=== PATIENT | female | born 1955 | race Caucasian/White ===

== ENCOUNTER 2016-09-24 15:49 | Emergency (ER) | payer BC ==
[2016-09-24 17:29] VITALS: BP 147/85
--- NOTE | 2016-09-24 18:04 | UC ---
Throat Pain/Nasal Ruperto HPI - HPI Summary HPI Summary: FOUR WEEKS OF SINUS CONGESTION PRESSURE, RIGHT EAR PLUGGED. WITH EAR PRESSURE HAS HAD OCCASIONAL VERTIGO. NOT HAVING VERTIGO CURRENTLY. - History of Current Complaint Chief Complaint: UCGeneralIllness Stated Complaint: SINUS CONGESTION Time Seen by Provider: 09/24/16 17:23 Hx Obtained From: Patient Onset/Duration: Gradual Onset, Lasting Weeks, Still Present Severity: Moderate Cough: Nonproductive Associated Signs & Symptoms: Positive: Sinus Discomfort, Nasal Discharge - Epiglottits Risk Factors Epiglottis Risk Factors: Negative - Allergies/Home Medications Allergies/Adverse Reactions: Allergies Allergy/AdvReac Type Severity Reaction Status Date / Time bandaids Allergy Mild Itching Uncoded 09/24/16 17:25 PMH/Surg Hx/FS Hx/Imm Hx Previously Healthy: Yes Endocrine History Of: Denies: Diabetes Cardiovascular History Of: Denies: Hypertension, Pacemaker/ICD Respiratory History Of: Denies: Asthma GI/ History Of: Denies: Renal Disease Cancer History Of: Denies: Breast Cancer - Surgical History Surgical History: Yes Surgery Procedure, Year, and Place: 1997 HYSTERECTOMY [place];. 2009 RIGHT LITTLE FINGER FRACTURED, ORIF AND REMOVAL OF PINS [facility] [place]; - Family History Known Family History: Positive: None, Unknown - Social History Occupation: Employed Full-time Lives: With Family Alcohol Use: Occasionally Substance Use Type: None Smoking Status (MU): Never Smoked Tobacco Have You Smoked in the Last Year: No Review of Systems Constitutional: Negative Skin: Negative Eyes: Negative ENT: Ear Ache, Nasal Discharge Respiratory: Cough Cardiovascular: Negative Gastrointestinal: Negative Genitourinary: Negative Motor: Negative Neurovascular: Negative Musculoskeletal: Negative Neurological: Negative Psychological: Negative All Other Systems Reviewed And Are Negative: Yes Physical Exam Triage Information Reviewed: Yes Appearance: Well-Appearing, No Pain Distress, Well-Nourished Vital Signs: Initial Vital Signs Temp 98 F 09/24/16 17:26 Pulse 82 09/24/16 17:26 Resp 18 09/24/16 17:26 BP 147/85 09/24/16 17:26 Pulse Ox 99 09/24/16 17:26 Vital Signs Reviewed: Yes Eye Exam: Normal Eyes: Positive: Conjunctiva Clear ENT: Positive: Hearing grossly normal, Pharynx normal, TM bulging - R>L, TM dull Dental Exam: Normal Neck exam: Normal Neck: Positive: Supple, Nontender Respiratory Exam: Normal Respiratory: Positive: Chest non-tender, Lungs clear, Normal breath sounds, No respiratory distress, No accessory muscle use Cardiovascular Exam: Normal Cardiovascular: Positive: RRR, No Murmur, Pulses Normal Abdominal Exam: Normal Abdomen Description: Positive: Nontender, No Organomegaly Bowel Sounds: Positive: Present Musculoskeletal Exam: Normal Musculoskeletal: Positive: Strength Intact Neurological Exam: Normal Psychological Exam: Normal Psychological: Positive: Normal Response To Family Skin Exam: Normal Throat Pain/Nasal Course/Dx - Differential Dx/Diagnosis Differential Diagnosis/HQI/PQRI: Pharyngitis, Sinusitis, Tonsillitis, URI Provider Diagnoses: SINUSITIS. RIGHT OTITIS SEROUS. VERTIGO Discharge - Discharge Plan Condition: Stable Disposition: HOME Prescriptions: Amoxicillin/Clavulanate TAB* [Augmentin TAB 875*] 875 mg PO BID #20 tab Fluticasone NASAL SPRAY 50MCG* [Flonase NASAL SPRAY 50MCG*] 2 spray BOTH NARES DAILY #1 btl Meclizine TAB* [Antivert 12.5 TAB*] 25 mg PO TID PRN #15 tab PRN Reason: Vertigo Patient Education Materials: Sinusitis (ED), Vertigo (ED), Serous Otitis Media (ED) Referrals: Stalin Lagunas NP [Primary Care Provider] -
== END 2016-09-24 18:05 | disposition home or self-care (01) ==
LOC: UCEAST 15:49
DX: J32.9 Chronic sinusitis, unspecified (principal); H65.91 Unspecified nonsuppurative otitis media, right ear; R42 Dizziness and giddiness
CPT/HCPCS: 99212; G0463

== ENCOUNTER 2017-11-28 11:19 | Emergency (ER) | payer BC ==
[2017-11-28 11:27] VITALS: BP 130/80
--- NOTE | 2017-11-28 11:51 | UC ---
Abdominal Pain Female HPI - HPI Summary HPI Summary: Pt presents with diarrhea since this morning. She tells me that she has a history of ulcerative colitis and takes medication when she gets "flares". Her last colonoscopy was [address] Pineda. This morning she woke up around 0400 with lower abdominal cramping and diarrhea. Has had 6 episodes of very loose diarrhea since that time. About a half hour ago she vomited. Has been drinking fluids, but has not eaten anything today. Denies fever, chills, SOB, chest pain. - History of Current Complaint Chief Complaint: UCGI Stated Complaint: DIARRHEA Time Seen by Provider: 11/28/17 11:50 Hx Obtained From: Patient Onset/Duration: Sudden Onset Severity Initially: Moderate Severity Currently: Moderate Pain Intensity: 7 Pain Scale Used: 0-10 Numeric Location: Diffuse Allergies/Adverse Reactions: Allergies Allergy/AdvReac Type Severity Reaction Status Date / Time bandaids Allergy Unknown Itching Uncoded 11/28/17 11:27 Home Medications: Home Medications Hyoscyamine Sulfate 0.125 mg PO DAILY PRN 11/28/17 [History Confirmed 11/28/17] PMH/Surg Hx/FS Hx/Imm Hx - Additional Past Medical History Additional PMH: Colitis Previously Healthy: Yes - Surgical History Surgical History: Yes Surgery Procedure, Year, and Place: 1997 HYSTERECTOMY [place];. 2009 RIGHT LITTLE FINGER FRACTURED, ORIF AND REMOVAL OF PINS [facility]; - Family History Known Family History: Positive: None, Unknown - Social History Occupation: Employed Full-time Lives: With Family Alcohol Use: Weekly Substance Use Type: None Smoking Status (MU): Never Smoked Tobacco Have You Smoked in the Last Year: No Review of Systems Constitutional: Negative Skin: Negative Respiratory: Negative Cardiovascular: Negative Gastrointestinal: Abdominal Pain, Vomiting, Diarrhea, Nausea Neurovascular: Negative Musculoskeletal: Negative Neurological: Negative Psychological: Negative All Other Systems Reviewed And Are Negative: Yes Physical Exam - Summary Physical Exam Summary: GENERAL: NAD. WDWN. No pain distress. SKIN: No rashes, sores, ulcers, masses, lesions. NECK: Supple. Nontender. No lymphadenopathy. CHEST: CTAB. No r/r/w. No accessory muscle use. Breathing comfortably and in no distress. CV: RRR. Without m/r/g. Pulses intact. Brisk cap refill. ABDOMEN: Mild TTP generalized with no localized tenderness. Soft. No distention or guarding. No organomegaly. No CVA tenderness. Bowel sounds present x4. NEURO: Alert. CN II-XII grossly intact. PSYCH: Age appropriate behavior. Triage Information Reviewed: Yes Vital Signs: Initial Vital Signs Temp 98.4 F 11/28/17 11:23 Pulse 83 11/28/17 11:23 Resp 14 11/28/17 11:23 BP 130/80 11/28/17 11:23 Pulse Ox 100 11/28/17 11:23 Abd Pain Female Course/Dx - Course Course Of Treatment: I spoke with Dr. Branham and he was able to see the patient 's outpatient records from his GI office - last colonscopy showed pt does NOT have UC and had been diagnosed with IBS. Given this information, this is likely viral gastroenteritis. She was given zofran in the clinic with mild relief of her nausea. D/c with stool sample kit and zofran. Go to ED if symptoms worsen. - Differential Dx/Diagnosis Provider Diagnoses: Viral gastroenteritis Discharge - Sign-Out/Discharge Documenting (check all that apply): Discharge - Discharge Plan Condition: Stable Disposition: HOME Prescriptions: Ondansetron ODT TAB* [Zofran 4 MG Odt TAB*] 4 mg PO Q8H PRN #12 tab.odt PRN Reason: Nausea Patient Education Materials: Gastroenteritis (ED) Referrals: Stalin Lagunas NP [Primary Care Provider] - Additional Instructions: If you develop a fever, shortness of breath, chest pain, new or worsening symptoms - please call your PCP or go to the ED. 1) Drink plenty of clear fluids 2) Try BRAT diet - bananas, rice, applesauce, and toast. Advance diet as tolerated - Billing Disposition and Condition Condition: STABLE Disposition: HOME
[2017-11-28] MEDS ORDERED: Ondansetron ODT TAB* 4 MG PO ONE (12:06)
== END 2017-11-28 12:58 | disposition home or self-care (01) ==
LOC: UCEAST 11:19
DX: A08.4 Viral intestinal infection, unspecified (principal); Z91.048 Other nonmedicinal substance allergy status
CPT/HCPCS: 99212; A9270-GY; G0463

== ENCOUNTER 2017-12-09 11:45 | Emergency (ER) | payer BC ==
--- OUTSIDE RECORDS SUMMARY | 2017-12-09 11:55 | XMS REPORT ---
:1955 External Reference #:[id number] Author Organization [facility] Address [address] [address] Phone [phone] Care Team Providers Name Role Phone Stalin Lagunas N.P. Care Team Information Promotional Advertising Assistant Unavailable Payers Type Date Identification Payment Subscriber Numbers Provider Health Maintenance Effective: Policy Number: BCBS [facility] Bernadette Reece [employer] ([facility]) 08/29/2015 [id number] PayID: [id number] [address] [address] [place] [phone] Medigap Part B Expires: Policy Number: BCBS Lorna Dee 08/28/2015 [id number] [employer] [facility] Number: [id number] [address] [address] PayID: [id number] [place] [phone] Problems Date Description Provider Status Onset: 04/24/2007 Pure hypercholesterolemia Lucina Shipman, RN MS [facility]ILDR[facility]'S NURS[facility] ASSISTANT Active Family History Date Family Member(s) Problem(s) Comments Father due to CHF () Father due to Old Age () - age 87 Mother due to LA () - 85y First Son Good Health Second Son Good Health First Brother due to Aneurysm, Cerebral () - age 34y Second Brother Hypertension Second Brother Hypercholesterolemia First Sister due to Cancer () - 52 Second Sister Hypertension Second Sister Hypercholesterolemia Social History Type Date Description Comments Occupation [employer] Cigarette Use Former Cigarette Smoker quit 3 y ago Smoking Patient is a former smoker Allergies, Adverse Reactions, Alerts Date Description Reaction Status Severity Comments 07/28/2005 NKDA active Medications Medication Date Status Form Strength Qnty SIG Indications Ordering Provider Cyclobenzaprine 10/11 Active Tablets 10mg 15tabs take one JANINE Lagunas tablet by Mashelle, mouth three N.P. times a day as needed muscle spasm Atorvastatin 10/01 Active Tablets 10mg 90tabs take 1 , tablet Mashelle, daily N.P. Lab 03/10 Active potassium.. Bebo, ....... Mashelle, ........... N.P. ........... ........ dx: hyperkalemi a. Ofloxacin 05/09 Hx Solution 0.3% 5ml 2 gtts OS [place], (Ophthalmic) qid x 5 Mashelle, - days N.P. 10/11 Cipro 03/28 Hx Tablets 500mg 20tabs 1 by mouth [place], twice a day Mashelle, - x 10 days N.P. 05/09 Cipro 09/28 Hx Tablets 500mg 20tabs 1 by mouth [place], twice a day Mashelle, - x 10 days N.P. 02/21 Ciclopirox Nail 07/09 Hx Solution 8% 6.600ml apply every night at [facility], - bedtime, N.P. 01/28 remove every tuesday and repeat Prednisone 10/02 Hx Tablets 10mg 30tabs 4 [facility] by N.P. 07/09 mouth x 3 days then 2 by mouth x 3 days then 1 by mouth x 3 days Proair HFA 09/27 Hx Aerosol 108(90Bas 1can 2 puffs e) four times Masbrian, - mcg/Act a day as N.P. 01/28 needed Symbicort 09/27 Hx Aerosol 160-4.5mc sample inhale 2 g/Act puffs by Masbrian, - mouth 2 N.P. 02 times a day /2015 Work Note 09/27 Hx no work [place]10/02/14-10/06/ Stalin, - 15 for N.P. 07/09 medical reasons Physical 12/20 Hx evaluate [place], and treat Stalin, - RIGHT N.P. 07/09 pain Dx: pain Ciclopirox Nail 04/19 Hx Solution 8% 6.600ml apply qhs, Bebo, remove q Mashelle, - tuesday and N.P. 12/20 Premarin 08/04 Hx Tablets 0.45mg 30tabs 1 po qd Mashelle, - N.P. 08/24 Lotrisone 08/04 Hx Cream 1-0.05% 45gm apply tid to affected Mashelle, - area N.P. 08/04 Clotrimazole/Bet 08/04 Hx Cream 1-0.05% 45gm apply tid Bebo, amethasone to affected Mashelle, Dipropionate - area N.P. 12/26 Zithromax Z-Clive 11/04 Hx Tablets 250mg 1tabs as directed Mashelle, - N.P. 08/04 Cheratussin ac 11/04 Hx Syrup 100-10mg/ 236ml 1 teaspoon 5ML every 4-6 h Stalin, - prn cough N.P. 08/04 Entocort Ec 03/11 Hx Caps ER 3mg 30caps 1 po tid 24HR brian, - N.P. 08/24 Augmentin 10/08 Hx Tablets 500-125mg 20tabs 1 po q hours x 10 Mashelle, - days N.P. 03/11 Mvi 10/05 Hx Tablets Unknown Mashelle, - N.P. 11/04 Prednisone 05/25 Hx Tablets 10mg 30tabs 4 po x 3 days, then Masnoyle, - 3 po x 3 N.P. 10/05 days then po x 3 days then 1 po x 3 days Zofran Odt 05/25 Hx Tablets 4mg 12tabs 1-2 tabs Dispers tid prn Mashelle, - nausea N.P. 11/04 Proctosol HC 05/25 Hx Cream 2.5% 28.350g apply as m directed Masnoyle, - N.P. 11/04 Metronidazole 05/19 Hx Tablets 500mg 10tabs 1 po bid x 5 days Mashelle, - N.P. 05/25 Hydrocodone/Acet 05/19 Hx Tablets 5-500mg 24tabs 1-2 tabs q , aminophen 4-6h prn Mashelle, - pain N.P. 03/11 Cipro 05/19 Hx Tablets 500mg 10tabs 1 po bid x 5 days Mashelle, - N.P. 05/25 Lidex 09/18 Hx Cream 0.05% 60gm apply sparingly Mashelle, - bid N.P. 05/08 Crestor 01/22 Hx Tablets 5mg 90tabs take one tablet by Stalin, - mouth every N.P. Lab 05/16 Hx type + RH Mashelle, - N.P. 12/31 dx: donor Ciprofloxacin 04/16 Hx Tablets 500mg 14tabs 1 po bid x Bebo, HCL 7 days Mashelle, - N.P. 04/26 Medrol Dosepak 12/07 Hx Tablets 4mg 1PK as Directed Mashelle, - N.P. 04/16 Radiology 12/04 Hx cxr Mashelle, - N.P. 12/07 dx: SOB/cough Zithromax Z-Clive 12/04 Hx Tablets 250mg 1Pak as directed Mashelle, - N.P. 04/16 Mucinex 12/04 Hx Tablets 600mg 24tabs 2 pills ER 12HR every 12 Mashelle, - hours N.P. 12/31 Cheratussin ac 12/04 Hx Syrup 120unit 1-2 tsp q s 4-6 h prn Mashelle, - cough N.P. 12/31 Lab 09/04 Hx lipids, lfts, vit D Stalin, - N.P. 03/11 dx: hypercholes terolemia Cock-Up 06/13 Hx cock-up splint for Stalin, - RIGHT wrist N.P. 05/08 Entex Pse 04/24 Hx Tablets 120-600 20tabs 1 tab q 12 465.9 ER 12HR hours as Lucina - needed for C, RN MS 05/04 sinus congestion. 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 12/31 Ciprofloxacin 01/19 Hx Tablets 500mg 20tabs 1 po bid X Trabshreyas, 10 days Jose Ramon Castillo MD 04/24 Chantix Starter 01/19 Hx #1Pack 1units as directed Clarita, Jose Ramon Castillo MD 03/09 Cipro 09/01 Hx Tablets 500mg 20tabs 1 po bid x Bebo 10 days Stalin, - N.P. 01/19 Amoxicillin 08/24 Hx Tablets 875mg 20tabs 1 po bid 461.0 Macabrent Rosalba Dee MD 09/01 Robitussin A-C 08/24 Hx Syrup 100mg;10m 120ml 10 ml qid 461.0 Kwasi g/5ML prn Rosalba Dee MD 01/19 Work Note 08/24 Hx Please 461.0 Kwasi Excuse From Rosalba Howell 08/25 MD Luiz 12/31 Premarin 07/19 Hx Tablets 0.625mg 90tabs 1 PO qd Bebo Stalin, - N.P. 08/04 Avelox 07/19 Hx Tablets 400mg 14tabs 1 po qd x Bebo 14 days Stalin, - N.P. 08/02 Avelox 05/30 Hx Tablets 400mg 14tabs 1 po qd x Bebo 14 days Corinale, - N.P. 07/19 Duratuss GP 05/30 Hx Tablets 1200mg;12 24tabs 1 PO Q 12 H Bebo 0 mg Mashelle, - N.P. 01/19 Lab Request 04/12 Hx lipid treatment Mashelle, - N.P. 09/01 dx: hypercholes terol Clarinex 03/28 Hx Tablets 5mg 30tabs 1 po qd 995.3 Bebo Mashelle, - N.P. 01/19 Singulair 03/28 Hx Tablets 10mg 30tabs 1 po q pm 995.3 Mashelle, - N.P. 01/19 Z Pack 03/23 Hx 1Pack as dir Kwasi Rosalba Dee MD 04/12 lipitor for 5 D during Fasting Lipid 11/04 Hx dx: Bebo, Panel: LFT, hypercholes Stalin, Lipids - terol N.P. 03/28 Ketek 08/18 Hx Tablets 400mg 10tabs 2 po qd x 5 D Rosalba Dee MD 04/12 Prednisone 08/18 Hx Tablets 10mg 30tabs 4 tabs qam Kwasi x 3 days Rosalba schaefer 3 tabtrevin Dee MD 05/30 qam x 3 days then 2 tabs qam x 3 days then 1 qam x3 days Albuterol 08/18 Hx Aerosol 90McG/Dos 1Can 2 puffs qid Kwasi, e prn Rosalba Dee MD 01/19 Cipro 08/16 Hx Tablets 500mg 28tabs 1 po bid x [place] 14 days Mashelle, - N.P. 08/18 Duratuss GP 08/16 Hx Tablets 1200mg;12 24tabs 1 po q 12 h 0 mg Mashelle, - N.P. 05/30 Hycotuss 08/16 Hx Liquid 100mg;5mg 120ml 1 tsp ac hs Bebo, Expectorant /2005 /5ML Mashelle, - N.P. 05/30 Cipro 07/28 Hx Tablets 250mg 6tabs 1 po bid Nurses /2005 Schedule - Falls 08/16 Premarin 06/29 Hx Tablets 1.25mg 30tabs 1 po qd Schedule - [place] 06/29 Diflucan 06/29 Hx Tablets 150mg 1tabs 1 po qd x 1 Stalin, - N.P. 04/12 Clindesse 06/29 Hx Cream 2% 1units 1 applicatorf Stalin - ul N.P. 05/30 vaginally x 1 Xanax 06/29 Hx Tablets 0.5mg 60tabs 1 po tid [place] Stalin, - N.P. 05/30 Lipitor 11/18 Hx Tablets 20mg 30tabs 1 po qd Bebo Stalin, - N.P. 01/22 Cary D 11/18 Hx Tablets 60mg;120 60tabs 1 po q 12h mg Stalin, - N.P. 05/30 Prednisone 11/18 Hx Tablets 20mg 6tabs 1 po bid x [place] 3 days Stalin, - N.P. 08/18 Immunizations CPT Code Status Date Vaccine Lot # [id number] Given 10/11/2017 Tdap (Adacel) Ages 7 And Above Only [id number] 45623 Given 10/11/2017 Tdap (Adacel) Ages 7 And Above Only [id number] Given 05/18/2016 Afluria Imunization [id number] Given 07/09/2014 Afluria Or Fluvirin Flu Vac Intramuscular [id number] Q2038 Given 06/07/2012 Fluzone Trivalent Immunization Q2038 Given 05/24/2011 Fluzone Trivalent Immunization [id number] Given 07/07/2006 Afluria Or Fluvirin Flu Vac Intramuscular 62056 Given 07/07/2006 Afluria Or Fluvirin Flu Vac Intramuscular [id number] 62037 Given 06/29/2005 Afluria Or Fluvirin Flu Vac Intramuscular [id number] 64144 Given 07/09/2004 Afluria Or Fluvirin Flu Vac Intramuscular 90778 Given 06/07/2002 Afluria Or Fluvirin Flu Vac Intramuscular 33890 Refused 10/11/2017 Influenza Vac, 3 Yrs & Older, Quadrivalent, Split, Im Use Vital Signs Date Vital Result Comment 10/11/2017 Body Temperature 97.9 F Weight 159.00 lb Heart Rate 69 /min BP Systolic 127 mmHg BP Diastolic 82 mmHg O2 % BldC Oximetry 99 % 05/09/2017 Body Temperature 98.2 F Weight 151.00 lb Heart Rate 63 /min BP Systolic 119 mmHg BP Diastolic 73 mmHg O2 % BldC Oximetry 97 % 03/28/2017 Body Temperature 97.7 F Weight 150.00 lb States Has Boot On Heart Rate 64 /min BP Systolic 133 mmHg BP Diastolic 83 mmHg O2 % BldC Oximetry 98 % 02/21/2017 Body Temperature 97.9 F Weight 153.00 lb Heart Rate 82 /min BP Systolic 116 mmHg BP Diastolic 64 mmHg Height 64 inches 5'4" O2 % BldC Oximetry 98 % BMI (Body Mass Index) 26.3 kg/m2 09/28/2016 Body Temperature 96.8 F Weight 157.00 lb Heart Rate 75 /min BP Systolic 115 mmHg BP Diastolic 69 mmHg Height 65 inches 5'5" O2 % BldC Oximetry 98 % BMI (Body Mass Index) 26.1 kg/m2 04/16/2016 Body Temperature 98.2 F Weight 148.25 lb Heart Rate 71 /min BP Systolic 105 mmHg BP Diastolic 68 mmHg 01/29/2016 Body Temperature 98.1 F Weight 150.00 lb Heart Rate 76 /min BP Systolic 112 mmHg BP Diastolic 70 mmHg O2 % BldC Oximetry 98 % 07/09/2015 Body Temperature 97.9 F Weight 149.00 lb Heart Rate 72 /min BP Systolic 107 mmHg BP Diastolic 69 mmHg O2 % BldC Oximetry 98 % 10/02/2014 Body Temperature 98.6 F Weight 149.12 lb Heart Rate 79 /min BP Systolic 118 mmHg BP Diastolic 73 mmHg O2 % BldC Oximetry 97 % 09/27/2014 Body Temperature 98.4 F Weight 147.38 lb Heart Rate 83 /min 81- after albuterol BP Systolic 133 mmHg BP Diastolic 89 mmHg O2 % BldC Oximetry 97 % 97-after albuteroll 07/09/2014 Body Temperature 98.8 F Weight 150.25 lb Heart Rate 79 /min BP Systolic 109 mmHg BP Diastolic 73 mmHg 03/21/2014 Body Temperature 98.1 F Weight 149.12 lb Heart Rate 63 /min BP Systolic 111 mmHg BP Diastolic 70 mmHg O2 % BldC Oximetry 95 % 12/20/2013 Body Temperature 98.4 F Weight 151.00 lb Heart Rate 68 /min BP Systolic 111 mmHg BP Diastolic 67 mmHg O2 % BldC Oximetry 98 % 08/24/2013 Body Temperature 98.4 F Weight 146.50 lb Heart Rate 73 /min BP Systolic 136 mmHg BP Diastolic 78 mmHg O2 % BldC Oximetry 98 % 04/19/2013 Body Temperature 96.3 F Weight 142.50 lb Heart Rate 69 /min BP Systolic 120 mmHg BP Diastolic 70 mmHg O2 % BldC Oximetry 99 % 12/26/2012 Body Temperature 98.1 F Weight 146.00 lb Heart Rate 62 /min BP Systolic 100 mmHg BP Diastolic 60 mmHg O2 % BldC Oximetry 98 % 08/04/2012 Body Temperature 97.4 F Weight 149.38 lb Heart Rate 53 /min BP Systolic 104 mmHg BP Diastolic 62 mmHg O2 % BldC Oximetry 98 % 11/05/2011 Body Temperature 98.1 F Weight 151.00 lb Heart Rate 65 /min BP Systolic 139 mmHg BP Diastolic 74 mmHg O2 % BldC Oximetry 98 % 05/24/2011 Body Temperature 98.1 F Weight 146.00 lb Heart Rate 58 /min BP Systolic 120 mmHg BP Diastolic 70 mmHg O2 % BldC Oximetry 97 % 03/11/2011 Body Temperature 98.7 F Weight 144.00 lb Heart Rate 73 /min BP Systolic 110 mmHg BP Diastolic 70 mmHg O2 % BldC Oximetry 98 % 10/05/2010 Body Temperature 98.3 F Weight 154.00 lb Heart Rate 72 /min BP Systolic 150 mmHg BP Diastolic 80 mmHg O2 % BldC Oximetry 98 % 05/25/2010 Weight 149.00 lb Heart Rate 61 /min BP Systolic 118 mmHg BP Diastolic 68 mmHg O2 % BldC Oximetry 99 % 05/08/2010 Body Temperature 98.4 F Weight 142.00 lb Heart Rate 79 /min BP Systolic 118 mmHg BP Diastolic 78 mmHg O2 % BldC Oximetry 96 % 09/17/2009 Body Temperature 97.8 F Weight 149.00 lb Heart Rate 67 /min BP Systolic 110 mmHg BP Diastolic 64 mmHg O2 % BldC Oximetry 98 % 12/31/2008 Body Temperature 97.9 F Weight 145.00 lb Heart Rate 54 /min BP Systolic 112 mmHg BP Diastolic 68 mmHg 04/16/2008 Body Temperature 98.1 F Weight 143.00 lb Heart Rate 67 /min BP Systolic 133 mmHg BP Diastolic 87 mmHg 12/05/2007 Body Temperature 98.2 F Weight 146.00 lb Heart Rate 70 /min BP Systolic 131 mmHg BP Diastolic 73 mmHg 06/13/2007 Weight 146.00 lb Heart Rate 70 /min BP Systolic 112 mmHg BP Diastolic 65 mmHg 04/24/2007 Body Temperature 98.0 F Weight 141.00 lb Heart Rate 60 /min BP Systolic 110 mmHg BP Diastolic 60 mmHg 01/19/2007 Body Temperature 98.2 F Weight 135.00 lb Heart Rate 76 /min BP Systolic 116 mmHg BP Diastolic 76 mmHg 08/24/2006 Body Temperature 97.6 F Weight 138.00 lb Heart Rate 84 /min BP Systolic 104 mmHg BP Diastolic 62 mmHg 07/19/2006 Body Temperature 97.9 F Weight 137.00 lb Heart Rate 72 /min BP Systolic 104 mmHg BP Diastolic 70 mmHg 05/30/2006 Body Temperature 98.3 F Weight 135.00 lb Heart Rate 68 /min BP Systolic 100 mmHg BP Diastolic 56 mmHg 04/12/2006 Body Temperature 98.6 F Weight 130.00 lb Heart Rate 80 /min BP Systolic 124 mmHg BP Diastolic 64 mmHg 03/28/2006 Weight 127.00 lb Heart Rate 90 /min BP Systolic 120 mmHg BP Diastolic 70 mmHg 08/31/2005 Body Temperature 98.1 F Weight 134.00 lb Heart Rate 72 /min BP Systolic 100 mmHg BP Diastolic 74 mmHg 08/24/2005 Weight 134.00 lb Heart Rate 60 /min BP Systolic 104 mmHg BP Diastolic 72 mmHg 08/18/2005 Body Temperature 98.0 F Weight 134.00 lb Heart Rate 96 /min BP Systolic 124 mmHg BP Diastolic 76 mmHg 07/28/2005 Body Temperature 97.8 F Heart Rate 66 /min BP Systolic 116 mmHg BP Diastolic 68 mmHg Urine Dipstick - Blood NEGATIVE Urine Dipstick - Protein NEGATIVE Urine Dipstick - Glucose NEGATIVE 11/18/2004 Body Temperature 98.2 F Weight 136.00 lb Heart Rate 80 /min BP Systolic 110 mmHg BP Diastolic 76 mmHg Results Test Date Test Result H/L Range Note Comprehensive Met Panel-[facility] 10/11/2017 Sodium 141 mmol/L 135-146 1, 2 Potassium 7.0 mmol/L High 3.5-5.2 1, 3 Chloride# 105 mmol/L 97-110 1, 4 Carbon Dioxide 29 mmol/L 24-34 1 Glucose 80 mg/dL 70-105 1 BUN 15 mg/dL 6-26 1 Creatinine 0.7 mg/dL 0.5-1.4 1 Calcium 9.9 mg/dL 8.5-10.2 1 Total Protein 6.7 g/dL 6.0-8.0 1 Albumin 4.9 g/dL 3.6-4.9 1 Globulin 1.8 g/dL Low 2.0-3.5 1 A/G Ratio 2.7 Ratio High 1.0-2.2 1 Total Bilirubin 0.4 mg/dL 0.1-1.3 1 Alkaline Phosphatase 68 U/L 24-140 1 Alt 21 U/L 3-42 1 Ast 20 U/L 8-42 1 Adrianne Egfr >60 >60 1, 5 Non Adrianne Egfr >60 >60 1, 6 Anion Gap 7 mmol/L 5-15 1, 7 Lipid 10/11/2017 Cholesterol 185 mg/dL 50-199 1 Triglycerides 95 mg/dL 30-200 1 HDL 83 mg/dL 35-85 1, 8 Chol/ HDL Ratio 2.2 ratio Low 3.7-5.6 1 VLDL 19 mg/dL 2-29 1 LDL (Calc) 84 mg/dL 20-99 1, 9 Laboratory test 02/21/2017 Hepatitis C Virus NONREACTIVE Nonreactive 10 finding Antibody Comprehensive Met 02/21/2017 Sodium 142 mmol/L 135-146 10, 11 Panel-[facility] Potassium 4.4 mmol/L 3.5-5.2 10 Chloride# 104 mmol/L 97-110 10, 12 Carbon Dioxide 29 mmol/L 24-34 10 Glucose 75 mg/dL 70-105 10 BUN 17 mg/dL 6-26 10 Creatinine 0.7 mg/dL 0.5-1.4 10 Calcium 9.4 mg/dL 8.5-10.2 10 Total Protein 6.1 g/dL 6.0-8.0 10 Albumin 4.4 g/dL 3.6-4.9 10 Globulin 1.7 g/dL Low 2.0-3.5 10 A/G Ratio 2.6 Ratio High 1.0-2.2 10 Total Bilirubin 0.4 mg/dL 0.1-1.3 10 Alkaline Phosphatase 76 U/L 24-140 10 Alt 23 U/L 3-42 10 Ast 24 U/L 8-42 10 Adrianne Egfr >60 >60 10, 13 Non Adrianne Egfr >60 >60 10, 14 Anion Gap 13 mmol/L 7-16 10, 15 Lipid 02/21/2017 Cholesterol 186 mg/dL 50-199 10 Triglycerides 122 mg/dL 30-200 10 HDL 74 mg/dL 35-85 10, 16 Chol/ HDL Ratio 2.5 ratio Low 3.7-5.6 10 VLDL 24 mg/dL 2-29 10 LDL (Calc) 87 mg/dL 20-99 10, 17 Lipid Treatment 05/12/2016 Cholesterol 194 mg/dL 50-199 10 Triglycerides 64 mg/dL 30-200 10 HDL 84 mg/dL 35-85 10, 18 Chol/ HDL Ratio 2.3 ratio Low 3.7-5.6 10 VLDL 13 mg/dL 2-29 10 LDL (Calc) 97 mg/dL 20-99 10, 19 Alt 22 U/L 3-42 10 Ast 22 U/L 8-42 10 Comprehensive Metabolic (CMP) 01/29/2016 Sodium 141 mmol/L 134-142 10 Potassium 4.5 mmol/L 3.5-5.2 10 Chloride 104 mmol/L 97-109 10 Carbon Dioxide 32 mmol/L 24-34 10 Glucose 100 mg/dL 70-105 10 BUN 13 mg/dL 6-26 10 Creatinine 0.7 mg/dL 0.5-1.4 10 Calcium 9.5 mg/dL 8.5-10.2 10 Total Protein 6.3 g/dL 6.0-8.0 10 Albumin 4.4 g/dL 3.6-4.9 10 Globulin 1.9 g/dL Low 2.0-3.5 10 A/G Ratio 2.3 Ratio High 1.0-2.2 10 Total Bilirubin 0.3 mg/dL 0.1-1.3 10 Alkaline Phosphatase 61 U/L 24-140 10 Alt 25 U/L 3-42 10 Ast 24 U/L 8-42 10 Anion Gap 10 mmol/L 6-14 10 Adrianne Egfr >60 >60 10, 20 Non Adrianne Egfr >60 >60 10, 21 Lipid 01/29/2016 Cholesterol 161 mg/dL 50-199 10 Triglycerides 77 mg/dL 30-200 10 HDL 76 mg/dL 35-85 10, 22 Chol/ HDL Ratio 2.1 ratio Low 3.7-5.6 10 VLDL 15 mg/dL 2-29 10 LDL (Calc) 70 mg/dL 20-99 10, 23 CBC With Auto Diff 01/29/2016 WBC 4.9 K/uL 4.1-11.0 10 RBC 4.12 M/uL 4.00-5.40 10 Hemoglobin 12.7 gm/dL 12.0-16.0 10 Hematocrit 38.0 % 36.0-47.0 10 MCV 92.1 fL 80.0-97.0 10 MCH 30.9 pg 27.0-32.0 10 MCHC 33.5 g/dL 32.0-36.0 10 RDW 12.5 % 11.5-14.5 10 PLT Count 229 K/ul 140-400 10 Neutrophil 48.2 % 35.0-75.0 10 Lymphocyte 41.2 % 16.0-52.0 10 Monocyte 8.5 % 2.0-10.0 10 Eosinophil 1.5 % 0.0-5.0 10 Basophil 0.6 % 0.0-4.0 10 Abs Neutrophils 2.4 K/uL 2.1-8.0 10 Abs Lymphocytes 2.0 K/uL 0.8-5.5 10 Abs Monocytes 0.4 K/uL 0.1-1.0 10 Abs Eosinophils 0.1 K/uL 0.0-0.5 10 Abs Basophils 0.0 K/uL 0.0-0.3 10 Laboratory test 03/21/2014 Urine Culture Microbiology res finding <SEE NOTE> CBC With Auto Diff 03/21/2014 WBC 4.3 K/uL 4.1-11.0 10 RBC 4.26 M/uL 4.00-5.40 10 Hemoglobin 13.1 gm/dL 12.0-16.0 10 Hematocrit 39.3 % 36.0-47.0 10 MCV 92.3 fL 80.0-97.0 10 MCH 30.8 pg 27.0-32.0 10 MCHC 33.4 g/dL 32.0-36.0 10 RDW 12.0 % 11.5-14.5 10 PLT Count 236 K/ul 140-400 10 Neutrophil 40.1 % 35.0-75.0 10 Lymphocyte 47.8 % 16.0-52.0 10 Monocyte 9.8 % 2.0-10.0 10 Eosinophil 1.5 % 0.0-5.0 10 Basophil 0.8 % 0.0-4.0 10 Abs Neutrophils 1.7 K/uL Low 2.1-8.0 10 Abs Lymphocytes 2.0 K/uL 0.8-5.5 10 Abmon 0.4 K/uL 0.1-1.0 10 Abs Eosinophils 0.1 K/uL 0.0-0.5 10 Abs Basophils 0.0 K/uL 0.0-0.3 10 Lipid 03/21/2014 Cholesterol 168 mg/dL 50-199 10 Triglycerides 71 mg/dL 30-200 10 HDL 72 mg/dL 35-85 10, 25 Chol/ HDL Ratio 2.3 ratio Low 3.7-5.6 10 VLDL 14 mg/dL 2-29 10 LDL (Calc) 82 mg/dL 20-99 10, 26 Comprehensive Metabolic (CMP) 03/21/2014 Sodium 143 mmol/L High 134-142 10 Potassium 5.7 No visible h <SEE NOTE> High 3.5-5.2 10, 27 mmol/L Chloride 107 mmol/L 97-109 10 Carbon Dioxide 32 mmol/L 24-34 10 Glucose 92 mg/dL 70-105 10 BUN 13 mg/dL 6-26 10 Creatinine 0.8 mg/dL 0.5-1.4 10 Calcium 9.6 mg/dL 8.5-10.2 10 Total Protein 6.4 g/dL 6.0-8.0 10 Albumin 4.4 g/dL 3.6-4.9 10 Globulin 2.0 g/dL 2.0-3.5 10 A/G Ratio 2.2 Ratio 1.0-2.2 10 Total Bilirubin 0.5 mg/dL 0.1-1.3 10 Alkaline Phosphatase 68 U/L 24-140 10 Alt 26 U/L 3-42 10 Ast 26 U/L 8-42 10 Anion Gap 10 mmol/L 6-14 10 Adrianne Egfr >60 >60 10, 28 Non Adrianne Egfr >60 >60 10, 29 Lipid Treatment 08/24/2013 Cholesterol 175 mg/dL 50-199 10 Triglycerides 66 mg/dL 30-200 10 HDL 68 mg/dL 35-85 10, 30 Chol/ HDL Ratio 2.6 ratio Low 3.7-5.6 10 VLDL 13 mg/dL 2-29 10 LDL (Calc) 94 mg/dL 20-99 10, 31 Alt 49 U/L High 3-42 10 Ast 39 U/L 8-42 10 Comprehensive Metabolic (CMP) 08/24/2013 Sodium 142 mmol/L 134-142 10 Potassium 4.8 mmol/L 3.5-5.2 10 Chloride 107 mmol/L 97-109 10 Carbon Dioxide 34 mmol/L 24-34 10 Glucose 106 mg/dL High 70-105 10 BUN 15 mg/dL 6-26 10 Creatinine 0.7 mg/dL 0.5-1.4 10 Calcium 9.5 mg/dL 8.5-10.2 10 Total Protein 6.1 g/dL 6.0-8.0 10 Albumin 4.5 g/dL 3.6-4.9 10 Globulin 1.6 g/dL Low 2.0-3.5 10 A/G Ratio 2.8 Ratio High 1.0-2.2 10 Total Bilirubin 0.4 mg/dL 0.1-1.3 10 Alkaline Phosphatase 77 U/L 24-140 10 Alt 49 U/L High 3-42 10 Ast 39 U/L 8-42 10 Anion Gap 6 mmol/L 6-14 10 Adrianne Egfr >60 >60 10, 32 Non Adrianne Egfr >60 >60 10, 33 CBC With Auto Diff 08/24/2013 WBC 4.4 K/uL 4.1-11.0 10 RBC 4.16 M/uL 4.00-5.40 10 Hemoglobin 12.9 gm/dL 12.0-16.0 10 Hematocrit 37.9 % 36.0-47.0 10 MCV 91.1 fL 80.0-97.0 10 MCH 31.1 pg 27.0-32.0 10 MCHC 34.1 g/dL 32.0-36.0 10 RDW 12.5 % 11.5-14.5 10 PLT Count 234 K/ul 140-400 10 Neutrophil 41.6 % 35.0-75.0 10 Lymphocyte 46.5 % 16.0-52.0 10 Monocyte 9.0 % 2.0-10.0 10 Eosinophil 2.2 % 0.0-5.0 10 Basophil 0.7 % 0.0-4.0 10 Abs Neutrophils 1.8 K/uL Low 2.1-8.0 10 Abs Lymphocytes 2.1 K/uL 0.8-5.5 10 Abmon 0.4 K/uL 0.1-1.0 10 Abs Eosinophils 0.1 K/uL 0.0-0.5 10 Abs Basophils 0.0 K/uL 0.0-0.3 10 Comprehensive Metabolic 03/22/2013 Sodium 144 Results veri High 134-142 34, 35 (CMP) <SEE NOTE> mmol/L Potassium 5.6 No visible h <SEE NOTE> High 3.5-5.2 34, 36 mmol/L Chloride 106 mmol/L 97-109 34 Carbon Dioxide 31 mmol/L 24-34 34 Glucose 101 mg/dL 70-105 34 BUN 13 mg/dL 6-26 34 Creatinine 0.6 mg/dL 0.5-1.4 34 Calcium 9.6 mg/dL 8.5-10.2 34 Total Protein 6.4 g/dL 6.0-8.0 34 Albumin 4.4 g/dL 3.6-4.9 34 Globulin 2.0 g/dL 2.0-3.5 34 A/G Ratio 2.2 Ratio 1.0-2.2 34 Total Bilirubin 0.3 mg/dL 0.1-1.3 34 Alkaline Phosphatase 66 U/L 24-140 34 Alt 20 U/L 3-42 34 Ast 20 U/L 8-42 34 Anion Gap 13 mmol/L 6-14 34 Adrianne Egfr >60 >60 34, 37 Non Adrianne Egfr >60 >60 34, 38 CBC With Auto Diff 03/22/2013 WBC 5.4 K/uL 4.1-11.0 34 RBC 4.34 M/uL 4.00-5.40 34 Hemoglobin 13.4 gm/dL 12.0-16.0 34 Hematocrit 39.6 % 36.0-47.0 34 MCV 91.3 fL 80.0-97.0 34 MCH 30.9 pg 27.0-32.0 34 MCHC 33.8 g/dL 32.0-36.0 34 RDW 12.3 % 11.5-14.5 34 PLT Count 251 K/ul 140-400 34 Neutrophil 45.4 % 35.0-75.0 34 Lymphocyte 43.9 % 16.0-52.0 34 Monocyte 8.1 % 2.0-10.0 34 Eosinophil 1.7 % 0.0-5.0 34 Basophil 0.9 % 0.0-4.0 34 Abs Neutrophils 2.4 K/uL 2.1-8.0 34 Abs Lymphocytes 2.4 K/uL 0.8-5.5 34 Abs Monocytes 0.4 K/uL 0.1-1.0 34 Abs Eosinophils 0.1 K/uL 0.0-0.5 34 Abs Basophils 0.0 K/uL 0.0-0.3 34 Lipid Treatment 03/22/2013 Cholesterol 155 mg/dL 50-199 34 Triglycerides 70 mg/dL 30-200 34 HDL 62 mg/dL 35-85 34, 39 Chol/ HDL Ratio 2.5 ratio Low 3.7-5.6 34 VLDL 14 mg/dL 2-29 34 LDL (Calc) 79 mg/dL 20-99 34, 40 Alt 20 U/L 3-42 34 Ast 20 U/L 8-42 34 Comprehensive Metabolic (CMP) 08/03/2012 Sodium 139 mmol/L 134-142 41 Potassium 4.5 mmol/L 3.5-5.2 41 Chloride 106 mmol/L 97-109 41 Carbon Dioxide 32 mmol/L 24-34 41 Glucose 93 mg/dL 70-105 41 BUN 13 mg/dL 6-26 41 Creatinine 0.7 mg/dL 0.5-1.4 41 Calcium 9.2 mg/dL 8.5-10.2 41 Total Protein 6.3 g/dL 6.0-8.0 41 Albumin 4.3 g/dL 3.6-4.9 41 Globulin 2.0 g/dL 2.0-3.5 41 A/G Ratio 2.2 Ratio 1.0-2.2 41 Total Bilirubin 0.5 mg/dL 0.1-1.3 41 Alkaline Phosphatase 52 U/L 24-140 41 Alt 19 U/L 3-42 41 Ast 20 U/L 8-42 41 Anion Gap 6 mmol/L 6-14 41 Adrianne Egfr >60 >60 41, 42 Non Adrianne Egfr >60 >60 41, 43 Lipid 08/03/2012 Cholesterol 164 mg/dL 50-199 41 Triglycerides 87 mg/dL 30-200 41 HDL 72 mg/dL 35-85 41, 44 Chol/ HDL Ratio 2.3 ratio Low 3.7-5.6 41 VLDL 17 mg/dL 2-29 41 LDL (Calc) 75 mg/dL 20-129 41, 45 Non HDL Cholesterol 92 mg/dL 20-129 41 CBC With Auto Diff 08/03/2012 WBC 5.0 K/uL 4.1-11.0 41 RBC 4.23 M/uL 4.00-5.40 41 Hemoglobin 13.0 gm/dL 12.0-16.0 41 Hematocrit 39.0 % 36.0-47.0 41 MCV 92.1 fL 80.0-97.0 41 MCH 30.7 pg 27.0-32.0 41 MCHC 33.3 g/dL 32.0-36.0 41 RDW 12.3 % 11.5-14.5 41 PLT Count 208 K/ul 140-400 41 Neutrophil 46.1 % 35.0-75.0 41 Lymphocyte 43.3 % 16.0-52.0 41 Monocyte 7.9 % 2.0-10.0 41 Eosinophil 1.9 % 0.0-5.0 41 Basophil 0.8 % 0.0-4.0 41 Abs Neutrophils 2.3 K/uL 2.1-8.0 41 Abs Lymphocytes 2.2 K/uL 0.8-5.5 41 Abs Monocytes 0.4 K/uL 0.1-1.0 41 Abs Eosinophils 0.1 K/uL 0.0-0.5 41 Abs Basophils 0.0 K/uL 0.0-0.3 41 Lipid Treatment 11/08/2011 Cholesterol 171 mg/dL 50-199 46 Triglycerides 134 mg/dL 30-200 46 HDL 64 mg/dL 35-85 46, 47 Chol/ HDL Ratio 2.7 ratio Low 3.7-5.6 46 VLDL 27 mg/dL 2-29 46 LDL (Calc) 80 mg/dL 20-129 46, 48 Alt 39 U/L 3-42 46 Ast 27 U/L 8-42 46 CBC With Auto Diff 11/08/2011 WBC 5.0 K/uL 4.1-11.0 46 RBC 4.11 M/uL 4.00-5.40 46 Hemoglobin 12.7 gm/dL 12.0-16.0 46 Hematocrit 37.2 % 36.0-47.0 46 MCV 90.5 fL 80.0-97.0 46 MCH 30.8 pg 27.0-32.0 46 MCHC 34.0 g/dL 32.0-36.0 46 RDW 12.7 % 11.5-14.5 46 PLT Count 230 K/ul 140-400 46 Manual Differential 11/08/2011 Rejected Test Cancelled 46 Reason Laboratory test 05/24/2011 Urine Culture Microbiology res 49 finding <SEE NOTE> Lipid Treatment 10/27/2010 Chol 161 mg/dL 50-199 50 Trig 116 mg/dL 10-150 50 HDL 59 mg/dL 35-85 50, 51 Chol/HDL 2.7 ratio Low 3.7-5.6 50 VLDL 23 mg/dL 2-29 50 LDL 79 mg/dL 20-129 50, 52 Alt 50 U/L High 5-45 50 Ast 54 U/L High 12-40 50 CBC With Auto Diff 05/25/2010 WBC 6.0 K/ul 4.0-10.9 RBC 4.15 M/ul Low 4.20-5.40 Hemoglobin 13.0 GM/dl 12.5-16.0 Hematocrit 38.4 % 36.0-47.0 MCV 92.6 FL 80.0-97.0 MCH 31.3 pg High 27.0-31.0 MCHC 33.8 g/dL 32.0-36.0 RDW 12.9 % 11.5-14.5 Platelet Count 287 K/ul 140-440 Neutrophils 51.6 % 50-70 Lymphocytes 37.8 % 20-44 Monocytes 8.7 % 2-9 Eosinophil 1.4 % 0-4 Basophil 0.5 % 0-2 Absolute Neutrophils 3.1 K/ul 2.05-7.63 Absolute Lymphocytes 2.3 K/ul 0.8-4.8 Absolute Monocytes 0.5 K/ul 0.1-1.0 Absolute Eosinophils 0.1 K/ul 0.1-0.5 Absolute Basophils 0.0 K/ul 0.0-0.3 Hematology Comment (Comm2) N/A CMP 05/25/2010 Sodium 144 mmol/L 135-144 Potassium 5.7 mmol/L High 3.6-5.2 53 Chloride 110 mmol/L 97-110 Carbon Dioxide 30 mmol/L 23-32 Glucose 94 mg/dL 70-105 BUN 8 mg/dL 6-22 Creatinine 0.6 mg/dL 0.5-1.3 BUN/CR 13 Ratio Calcium 9.7 mg/dL 8.6-10.2 Total Protein 6.5 g/dL 5.8-7.8 Albumin 4.2 g/dL 3.5-4.8 Globulin 2.3 g/dL 2.0-3.5 A/G Ratio 1.8 Ratio 1.0-2.2 Total Bilirubin 0.5 mg/dL 0.3-1.2 Alkaline Phosphatase 65 U/L 24-140 Alt 28 U/L 5-45 Ast 30 U/L 12-40 Anion Gap 10 mmol/L 8-16 GFR Calculation > 60 mL/min 60-175 54 GFR For > 60 mL/min 60-175 55 Laboratory test finding 05/08/2010 Hemoglobin A1c 5.6 % 4.1-6.5 Lipid TX Panel 05/08/2010 Ast 27 U/L 12-40 Alt 19 U/L 5-45 Cholesterol 163 mg/dL 50-199 Triglycerides 98 mg/dL 10-150 HDL 66 mg/dL 35-85 56 LDL (Calc) 77 mg/dL 20-129 57 Chol/HDL Ratio 2.5 Ratio Low 3.7-5.6 58 VLDL 20 mg/dL 2-29 Laboratory test finding 09/17/2009 Urine Culture NO GROWTH Lipid TX Panel 12/31/2008 Ast 23 U/L 12-40 59 Alt 18 U/L 4-45 59 Cholesterol 192 mg/dL 50-199 59 Triglycerides 56 mg/dL 10-150 59 HDL 84 mg/dL 35-85 59, 60 LDL (Calc) 97 mg/dL 20-129 59, 61 Chol/HDL Ratio 2.3 Ratio Low 3.7-5.6 59, 62 VLDL 11 mg/dL 2-29 59 Laboratory test finding 12/31/2008 TSH 1.99 uIU/ml 0.34-5.60 59 CBC With Auto Diff 12/31/2008 WBC 4.3 K/ul 4.0-10.9 59 RBC 4.20 M/ul 4.20-5.40 59 Hemoglobin 13.4 GM/dl 12.5-16.0 59 Hematocrit 38.7 % 36.0-47.0 59 MCV 92.1 FL 80.0-97.0 59 MCH 31.9 pg High 27.0-31.0 59 MCHC 34.6 g/dL 32.0-36.0 59 RDW 12.3 % 11.5-14.5 59 Platelet Count 228 K/ul 140-440 59 Neutrophils 50.8 % 50-70 59 Lymphocytes 39.6 % 20-44 59 Monocytes 8.4 % 2-9 59 Eosinophil 0.7 % 0-4 59 Basophil 0.5 % 0-2 59 Absolute Neutrophils 2.2 K/ul 2.05-7.63 59 Absolute Lymphocytes 1.7 K/ul 0.8-4.8 59 Absolute Monocytes 0.4 K/ul 0.1-1.0 59 Absolute Eosinophils 0.0 K/ul Low 0.1-0.5 59 Absolute Basophils 0.0 K/ul 0.0-0.3 59 Hematology Comment (Comm2) N/A 59 Lipid TX Panel 08/18/2004 Ast 22 U/L 8-42 Alt 16 U/L 3-42 Cholesterol 223 mg/dL High 50-199 Triglycerides 78 mg/dL 30-200 HDL 70 mg/dL 35-85 LDL (Calc) 137 mg/dL High 20-129 Chol/HDL Ratio 3.2 Ratio VLDL 16 mg/dL 1 This sample is drawn by:DL/TINNING MACHINE SET UP OPERATOR 2 Updated reference range on new analyzer 3 Critical Result S_K:7.0 Verified by repeat analysis and Called to: STALIN LAGUNAS at: 10/12/2017 19:42:02 by:PEEWEE JUAREZ 4 Updated reference range on new analyzer 5 Concerning GFR Guidelines for Americans: Normal function or mild renal disease, if clinically at risk: >/=60 mL/min Moderately decreased: 30-59 Severely decreased: 15-29 Renal failure: <15 6 Concerning GFR Guidelines: Normal function or mild renal disease, if clinically at risk: >/=60 mL/min Moderately decreased: 30-59 Severely decreased: 15-29 Renal failure: <15 Glomerular Filtration Rate (GFR) is estimated based on the MDRD equation, which assumes a steady state for creatinine as recommended by the National Kidney Disease Education Program in conjunction with the National Institutes of Health and the National Kidney Foundation. Clinical conditions in which it may be necessary to measure GFR by using clearance methods include extremes of age and body size, severe malnutrition or obesity, diseases of skeletal muscle, paraplegia or quadriplegia, vegetarian diet, rapidly changing kidney function, and calculation of the dose of potentially toxic drugs that are excreted by the kidneys. 7 Updated Reference Range 8 Per NCEP ATP III Guidelines: Results lower than 40 mg/dL are suggestive of increased risk for coronary artery disease. Results > or=to 60 mg/dL are considered a negative risk factor. 9 Per NCEP ATP III Guidelines: Normal Population <130 Patients with medical conditions: CHD/DM Optimal: <100 Borderline high: 130-159 High: 160-189 Very high: >189 10 This sample is drawn by:PHUONG/ABISAI 11 Updated reference range on new analyzer 12 Updated reference range on new analyzer 13 Concerning GFR Guidelines for Americans: Normal function or mild renal disease, if clinically at risk: >/=60 mL/min Moderately decreased: 30-59 Severely decreased: 15-29 Renal failure: <15 14 Concerning GFR Guidelines: Normal function or mild renal disease, if clinically at risk: >/=60 mL/min Moderately decreased: 30-59 Severely decreased: 15-29 Renal failure: <15 Glomerular Filtration Rate (GFR) is estimated based on the MDRD equation, which assumes a steady state for creatinine as recommended by the National Kidney Disease Education Program in conjunction with the National Institutes of Health and the National Kidney Foundation. Clinical conditions in which it may be necessary to measure GFR by using clearance methods include extremes of age and body size, severe malnutrition or obesity, diseases of skeletal muscle, paraplegia or quadriplegia, vegetarian diet, rapidly changing kidney function, and calculation of the dose of potentially toxic drugs that are excreted by the kidneys. 15 Updated reference range on new analyzer 16 Per NCEP ATP III Guidelines: Results lower than 40 mg/dL are suggestive of increased risk for coronary artery disease. Results > or=to 60 mg/dL are considered a negative risk factor. 17 Per NCEP ATP III Guidelines: Normal Population <130 Patients with medical conditions: CHD/DM Optimal: <100 Borderline high: 130-159 High: 160-189 Very high: >189 18 Per NCEP ATP III Guidelines: Results lower than 40 mg/dL are suggestive of increased risk for coronary artery disease. Results > or=to 60 mg/dL are considered a negative risk factor. 19 Per NCEP ATP III Guidelines: Normal Population <130 Patients with medical conditions: CHD/DM Optimal: <100 Borderline high: 130-159 High: 160-189 Very high: >189 20 Concerning GFR Guidelines for Americans: Normal function or mild renal disease, if clinically at risk: >/=60 mL/min Moderately decreased: 30-59 Severely decreased: 15-29 Renal failure: <15 21 Concerning GFR Guidelines: Normal function or mild renal disease, if clinically at risk: >/=60 mL/min Moderately decreased: 30-59 Severely decreased: 15-29 Renal failure: <15 Glomerular Filtration Rate (GFR) is estimated based on the MDRD equation, which assumes a steady state for creatinine as recommended by the National Kidney Disease Education Program in conjunction with the National Institutes of Health and the National Kidney Foundation. Clinical conditions in which it may be necessary to measure GFR by using clearance methods include extremes of age and body size, severe malnutrition or obesity, diseases of skeletal muscle, paraplegia or quadriplegia, vegetarian diet, rapidly changing kidney function, and calculation of the dose of potentially toxic drugs that are excreted by the kidneys. 22 Per NCEP ATP III Guidelines: Results lower than 40 mg/dL are suggestive of increased risk for coronary artery disease. Results > or=to 60 mg/dL are considered a negative risk factor. 23 Per NCEP ATP III Guidelines: Normal Population <130 Patients with medical conditions: CHD/DM Optimal: <100 Borderline high: 130-159 High: 160-189 Very high: >189 24 Microbiology results SOURCE MIDU FINAL RESULT No growth 25 Per NCEP ATP III Guidelines: Results lower than 40 mg/dL are suggestive of increased risk for coronary artery disease. Results > or=to 60 mg/dL are considered a negative risk factor. 26 Per NCEP ATP III Guidelines: Normal Population <130 Patients with medical conditions: CHD/DM Optimal: <100 Borderline high: 130-159 High: 160-189 Very high: >189 27 5.7 No visible hemolysis. 28 Concerning GFR Guidelines for Americans: Normal function or mild renal disease, if clinically at risk: >/=60 mL/min Moderately decreased: 30-59 Severely decreased: 15-29 Renal failure: <15 29 Concerning GFR Guidelines: Normal function or mild renal disease, if clinically at risk: >/=60 mL/min Moderately decreased: 30-59 Severely decreased: 15-29 Renal failure: <15 Glomerular Filtration Rate (GFR) is estimated based on the MDRD equation, which assumes a steady state for creatinine as recommended by the National Kidney Disease Education Program in conjunction with the National Institutes of Health and the National Kidney Foundation. Clinical conditions in which it may be necessary to measure GFR by using clearance methods include extremes of age and body size, severe malnutrition or obesity, diseases of skeletal muscle, paraplegia or quadriplegia, vegetarian diet, rapidly changing kidney function, and calculation of the dose of potentially toxic drugs that are excreted by the kidneys. 30 Per NCEP ATP III Guidelines: Results lower than 40 mg/dL are suggestive of increased risk for coronary artery disease. Results > or=to 60 mg/dL are considered a negative risk factor. 31 Per NCEP ATP III Guidelines: Normal Population <130 Patients with medical conditions: CHD/DM Optimal: <100 Borderline high: 130-159 High: 160-189 Very high: >189 32 Concerning GFR Guidelines for Americans: Normal function or mild renal disease, if clinically at risk: >/=60 mL/min Moderately decreased: 30-59 Severely decreased: 15-29 Renal failure: <15 33 Concerning GFR Guidelines: Normal function or mild renal disease, if clinically at risk: >/=60 mL/min Moderately decreased: 30-59 Severely decreased: 15-29 Renal failure: <15 Glomerular Filtration Rate (GFR) is estimated based on the MDRD equation, which assumes a steady state for creatinine as recommended by the National Kidney Disease Education Program in conjunction with the National Institutes of Health and the National Kidney Foundation. Clinical conditions in which it may be necessary to measure GFR by using clearance methods include extremes of age and body size, severe malnutrition or obesity, diseases of skeletal muscle, paraplegia or quadriplegia, vegetarian diet, rapidly changing kidney function, and calculation of the dose of potentially toxic drugs that are excreted by the kidneys. 34 This sample is drawn by:KD/PEDIATRIC LPN 35 144 Results verified by repeat analysis 36 5.6 No visible hemolysis. 37 Concerning GFR Guidelines for Americans: Normal function or mild renal disease, if clinically at risk: >/=60 mL/min Moderately decreased: 30-59 Severely decreased: 15-29 Renal failure: <15 38 Concerning GFR Guidelines: Normal function or mild renal disease, if clinically at risk: >/=60 mL/min Moderately decreased: 30-59 Severely decreased: 15-29 Renal failure: <15 Glomerular Filtration Rate (GFR) is estimated based on the MDRD equation, which assumes a steady state for creatinine as recommended by the National Kidney Disease Education Program in conjunction with the National Institutes of Health and the National Kidney Foundation. Clinical conditions in which it may be necessary to measure GFR by using clearance methods include extremes of age and body size, severe malnutrition or obesity, diseases of skeletal muscle, paraplegia or quadriplegia, vegetarian diet, rapidly changing kidney function, and calculation of the dose of potentially toxic drugs that are excreted by the kidneys. 39 Per NCEP ATP III Guidelines: Results lower than 40 mg/dL are suggestive of increased risk for coronary artery disease. Results > or=to 60 mg/dL are considered a negative risk factor. 40 Per NCEP ATP III Guidelines: Optimal: <100 Near optimal: 100-129 Borderline high: 130-159 High: 160-189 Very high: >189 41 This sample is drawn by:kd/cat breeder 42 Concerning GFR Guidelines for Americans: Normal function or mild renal disease, if clinically at risk: >/=60 mL/min Moderately decreased: 30-59 Severely decreased: 15-29 Renal failure: <15 43 Concerning GFR Guidelines: Normal function or mild renal disease, if clinically at risk: >/=60 mL/min Moderately decreased: 30-59 Severely decreased: 15-29 Renal failure: <15 Glomerular Filtration Rate (GFR) is estimated based on the MDRD equation, which assumes a steady state for creatinine as recommended by the National Kidney Disease Education Program in conjunction with the National Institutes of Health and the National Kidney Foundation. Clinical conditions in which it may be necessary to measure GFR by using clearance methods include extremes of age and body size, severe malnutrition or obesity, diseases of skeletal muscle, paraplegia or quadriplegia, vegetarian diet, rapidly changing kidney function, and calculation of the dose of potentially toxic drugs that are excreted by the kidneys. 44 Per NCEP ATP III Guidelines: Results lower than 40 mg/dL are suggestive of increased risk for coronary artery disease. Results > or=to 60 mg/dL are considered a negative risk factor. 45 Per NCEP ATP III Guidelines: Optimal: <100 Near optimal: 100-129 Borderline high: 130-159 High: 160-189 Very high: >189 46 This sample is drawn by:PABLITO/ROSHNI 47 Per NCEP ATP III Guidelines: Results lower than 40 mg/dL are suggestive of increased risk for coronary artery disease. Results > or=to 60 mg/dL are considered a negative risk factor. 48 Per NCEP ATP III Guidelines: Optimal: <100 Near optimal: 100-129 Borderline high: 130-159 High: 160-189 Very high: >189 49 Microbiology results SOURCE MIDU RESULT No growth 50 SAMPLE TAKEN BY LS/TINNING MACHINE SET UP OPERATOR 51 Per NCEP ATP III Guidelines: Results lower than 40 mg/dL are suggestive of increased risk for coronary artery disease. Results > or=to 60 mg/dL are considered a negative risk factor. 52 Per NCEP ATP III Guidelines: Optimal: <100 Near optimal: 100-129 Borderline high: 130-159 High: 160-189 Very high: >189 53 NO HEMOLYSIS NOTED- RESULT CONFIRMED- MFO 54 Concerning GFR GUIDELINES: Normal Function or Mild Renal Disease, if clinically at risk: >/=60mL/min Moderately decreased: 30-59 Severely decreased: 15-29 Renal Failure: <15 Glomerular Filtration Rate (GFR) is estimated based on the MDRD equation, which assumes a steady state for creatinine as recommended by the National Kidney Disease Education Program in conjunction with the National Institutes of Health and the National Kidney Foundation. Clinical conditions in which it may be necessary to measure GFR by using clearance methods include extremes of age and body size, severe malnutrition or obesity, diseases of skeletal muscle, paraplegia or quadriplegia, vegetarian diet, rapidly changing kidney function, and calculation of the dose of potentially toxic drugs that are excreted by the kidneys. 55 Concerning GFR GUIDELINES: Normal Function or Mild Renal Disease, if clinically at risk: >/=60mL/min Moderately decreased: 30-59 Severely decreased: 15-29 Renal Failure: <15 56 PER NCEP ATP III GUIDELINES: RESULTS LOWER THAN 40 MG/DL ARE SUGGESTIVE OF INCREASED RISK FOR CORONARY ARTERY DISEASE. RESULTS > OR=TO 60 MG/DL ARE CONSIDERED A NEGATIVE RISK FACTOR. 57 PER NCEP ATP III GUIDELINES: OPTIMAL: <100 NEAR OPTIMAL: 100 - 129 BORDERLINE HIGH: 130 - 159 HIGH: 160 - 189 VERY HIGH: >189 58 INTERPRETATION OF CHOL-HDL RATIO CHD RISK FEMALE MALE VERY HIGH >8.3 >14.3 HIGH 5.6 - 8.3 6.7 - 14.3 AVERAGE 3.7 - 5.6 4.0 - 6.7 BELOW AVERAGE 2.5 - 3.7 2.7 - 4.0 PROTECTED <2.5 <2.7 59 FASTING This sample is drawn by:ABISAI BARTH 60 PER NCEP ATP III GUIDELINES: RESULTS LOWER THAN 40 MG/DL ARE SUGGESTIVE OF INCREASED RISK FOR CORONARY ARTERY DISEASE. RESULTS > OR=TO 60 MG/DL ARE CONSIDERED A NEGATIVE RISK FACTOR. 61 PER NCEP ATP III GUIDELINES: OPTIMAL: <100 NEAR OPTIMAL: 100 - 129 BORDERLINE HIGH: 130 - 159 HIGH: 160 - 189 VERY HIGH: >189 62 INTERPRETATION OF CHOL-HDL RATIO CHD RISK FEMALE MALE VERY HIGH >8.3 >14.3 HIGH 5.6 - 8.3 6.7 - 14.3 AVERAGE 3.7 - 5.6 4.0 - 6.7 BELOW AVERAGE 2.5 - 3.7 2.7 - 4.0 PROTECTED <2.5 <2.7 Procedures Date CPT Code Description Status Comment 02/21/2017 65685 Electrocardiogram Complete Completed 01/17/2017 Mammogram Completed 10/15/2016 Colonoscopy Completed Document: 10/15/16 - Colonoscopy 01/16/2016 Mammogram Completed 01/13/2015 Mammogram Completed 10/02/2014 27146 Measure Blood Oxygen Level Completed Single Determination 09/27/2014 64568 Measure Blood Oxygen Level Completed Multiple Determinations 09/27/2014 39506 Airway Inhalation Treatment Completed 11/15/2013 Mammogram Completed 11/03/2011 Mammogram Completed 11/30/2010 Mammogram Completed 10/05/2010 10975 Measure Blood Oxygen Level Completed Single Determination 08/18/2010 Colonoscopy Completed Document: 08/18/10 - Colonoscopy 05/26/2009 Mammogram Completed 08/18/2005 52774 Airway Inhalation Treatment Completed 08/18/2005 51318 Measure Blood Oxygen Level Completed Single Determination 04/05/2003 04775 Destruction Lesion/Any Method Completed Premalignant Lesions Encounters Type Date Location Provider CPT E/M Dx Office Visit 10/11/2017 4:00p Stalin Gonzalez, N.P. 28426 E78.2 Z23 Office Visit 05/09/2017 11:45a Stalin Gonzalez, N.P. 28490 H04.012 Office Visit 03/28/2017 1:00p Stalin Gonzalez, N.P. 66905 J01.00 Office Visit 02/21/2017 3:30p Stalin Gonzalez, N.P. 33987 Z01.818 E78.2 Z11.59 Office Visit 09/28/2016 2:15p Stalin Gonzalez, N.P. 83996 J01.00 H65.199 Office Visit 04/16/2016 11:00a Stalin Gonzalez, N.P. 09711 R10.30 K58.0 Office Visit 01/29/2016 2:00p Stalin Gonzalez, N.P. 55120 E78.2 R53.83 Z01.818 M79.645 Office Visit 07/09/2015 10:15a Stalin Gonzalez, N.P. 57436 M25.532 E78.2 Office Visit 10/02/2014 9:00a Stalin Gonzalez, N.P. 73629 786.2 466.0 Office Visit 09/27/2014 9:30a Stalin Gonzalez, N.P. 18700 487.8 786.2 786.05 Office Visit 07/09/2014 8:00a Stalin Gonzalez, N.P. 55929 V04.81 272.2 698.8 Office Visit 03/21/2014 8:30a Stalin Gonzalez, N.P. 55865 272.0 788.1 780.79 Office Visit 12/20/2013 3:00p Stalin Gonzalez, N.P. 99085 272.0 726.19 Office Visit 08/24/2013 8:15a Stalin Gonzalez, N.P. 00683 272.0 272.2 780.79 110.1 Office Visit 04/19/2013 3:15p Stalin Gonzalez, N.P. 62954 272.0 789.9 110.1 Office Visit 12/26/2012 4:15p Stalin Gonzalez, N.P. 13863 272.0 727.42 Office Visit 08/04/2012 11:45a Stalin Gonzalez, N.P. 96443 272.0 627.2 782.9 Office Visit 11/05/2011 8:15a Stalin Gonzalez, N.P. 42843 461.0 Office Visit 05/24/2011 2:00p Stalin Gonzalez, N.P. 63593 599.0 V04.81 Office Visit 03/11/2011 1:15p Stalin Gonzalez, N.P. 61210 272.0 Office Visit 10/05/2010 9:45a Stalin Gonzalez, N.P. 09147 465.9 Office Visit 05/25/2010 3:45p Stalin Gonzalez, N.P. 46000 009.1 Office Visit 05/08/2010 9:45a Stalin Gonzalez, N.P. 82343 009.1 272.2 790.6 Office Visit 09/17/2009 3:15p Stalin Gonzalez, N.P. 79692 599.0 E915 Office Visit 12/31/2008 8:45a Stalin Gonzalez, N.P. 98102 272.2 Office Visit 04/16/2008 2:45p Stalin Gonzalez, N.P. 76840 599.0 272.2 Office Visit 12/05/2007 3:45p Stalin Gonzalez, N.P. 04315 461.0 466.0 Office Visit 06/13/2007 2:45p Stalin Gonzalez, N.P. 72314 354.0 Office Visit 04/24/2007 10:15a Lucina Gillette RN MS [facility]ANT 22901 465.9 305.1 Office Visit 01/19/2007 1:55[place] [address] 461.0 462 Office Visit 08/24/2006 10:15[place] [address] 461.0 Office Visit 07/19/2006 1:15p Stalin Gonzalez, N.P. 40443 461.0 Office Visit 05/30/2006 3:30p Corina Gonzalezle, N.P. 99847 461.0 Office Visit 04/12/2006 4:00p Stalin Gonzalez, N.P. 05387 995.3 305.1 Office Visit 03/28/2006 2:15p Stalin Gonzalez, N.P. 16955 995.3 472.1 Office Visit 08/31/2005 10:00a Stalin Gonzalez, N.P. 35735 466.0 461.0 272.0 Office Visit 08/24/2005 10:45a Stalin Gonzalez, N.P. 08853 466.0 786.2 Office Visit 08/18/2005 9:15[place] [address] 493.00 466.0 Office Visit 08/16/2005 1:30p Stalin Gonzalez, N.P. 60685 466.0 786.2 461.0 Office Visit 11/18/2004 10:30a Stalin Gonzalez, N.P. 76254 272.0 381.01 461.0 780.4 Office Visit 10/01/2004 2:15p Stalin Gonzalez, N.P. 89144 461.0 466.0 272.0 786.2 Office Visit 08/27/2004 4:30p Stalin Gonzalez, N.P. 65064 272.0 296.22 Office Visit 07/09/2004 1:45p Stalin Gonzalez, N.P. 36775 272.0 473.9 V04.81 Office Visit 06/15/2004 11:00[place] [address] 461.0 466.0 Office Visit 03/12/2004 4:00p Stalin Gonzalez, N.P. 56691 686.9 Office Visit 02/21/2004 10:00a Stalin Gonzalez, N.P. 96913 813.42 Office Visit 12/16/2003 3:45p Stalin Gonzalez, N.P. 85422 477.0 462 616.10 Office Visit 11/12/2003 5:30p Stalin Gonzalez, N.P. 71483 380.10 Office Visit 10/29/2003 5:15p Stalin Gonzalez, N.P. 81559 380.10 Office Visit 03/07/2003 4:15p Stalin Gonzalez, N.P. 04640 214.1 Office Visit 11/08/2002 5:15[place] [address] 380.15 Office Visit 06/07/2002 4:45p Stalin Gonzalez, N.P. 86727 381.4 380.10 V04.8 Office Visit 01/23/2002 2:45p Nina Carrasquillo FNP 12441 461.0 382.00 Office Visit 10/17/2001 9:00a Nina Carrasquillo FNP 85079 461.0 381.01 Office Visit 08/03/2001 5:30[place] [address] Office Visit 07/27/2001 5:30[place] [address] Office Visit 08/18/2000 10:00a David Mansfield P.A.-Rocky 53633 382.00 Office Visit 07/04/2000 4:30p David Mansfield P.A.-Rocky 34877 381.01 Plan of Care Future Appointment(s):12/06/2017 3:15 pm Stalin Mack, N.P. at [id number] - Stalin Lagunas, N.P.E78.2 Mixed hyperlipidemiaComments:importance of low chol/fat diet discussedwritten pt ed given concerning sources of chol and diet [id number] Encounter for immunizationComments:parent counseled regarding vaccine-need for, risks of not getting immun. and poss SE of vacc parentcounseled regarding vaccine-need for, risks of not getting immun. and poss SE of vaccAllNew Medication:Cyclobenzaprine HCL 10 mg
[2017-12-09 11:58] VITALS: BP 128/88
--- NOTE | 2017-12-09 13:15 | UC ---
Throat Pain/Nasal Ruperto HPI - HPI Summary HPI Summary: Patient to urgent care this afternoon with chief complaint of 5 days of worsening sinus pain and pressure. Patient complains of fatigue and fever headaches - History of Current Complaint Chief Complaint: UCGeneralIllness Stated Complaint: Sinus, sore throat, ear pain Time Seen by Provider: 12/09/17 12:30 Hx Obtained From: Patient Hx Last Menstrual Period: na ?: No Onset/Duration: Gradual Onset, Lasting Days - 5, Still Present, Worse Since - Getting worse daily Severity: Severe Pain Intensity: 9 Pain Scale Used: 0-10 Numeric Cough: None Associated Signs & Symptoms: Positive: Sinus Discomfort, Nasal Discharge, Fever - Allergies/Home Medications Allergies/Adverse Reactions: Allergies Allergy/AdvReac Type Severity Reaction Status Date / Time bandaids Allergy Unknown Itching Uncoded 12/09/17 11:58 PMH/Surg Hx/FS Hx/Imm Hx Previously Healthy: No Endocrine History: Dyslipidemia GI/ History: Other Other GI/ History: colitis - Surgical History Surgical History: Yes Surgery Procedure, Year, and Place: 1997 HYSTERECTOMY [place];. 2009 RIGHT LITTLE FINGER FRACTURED, [facility] AND REMOVAL OF [facility]; - Family History Known Family History: Positive: None, Unknown - Social History Occupation: Employed Full-time Lives: With Family Alcohol Use: Weekly Substance Use Type: None Smoking Status (MU): Former Smoker Length of Time of Smoking/Using Tobacco: 20 years Have You Smoked in the Last Year: No When Did the Patient Quit Smoking/Using Tobacco: 2007 Review of Systems Constitutional: Fever, Chills, Fatigue Skin: Negative Eyes: Negative ENT: Sore Throat, Ear Ache, Nasal Discharge, Sinus Congestion, Sinus Pain/ Tenderness Respiratory: Negative Cardiovascular: Negative Gastrointestinal: Negative Genitourinary: Negative Motor: Negative Neurovascular: Negative Musculoskeletal: Negative Neurological: Headache Psychological: Negative Is Patient Immunocompromised?: No All Other Systems Reviewed And Are Negative: Yes Physical Exam Triage Information Reviewed: Yes Appearance: Well-Nourished, Ill-Appearing, Pain Distress Vital Signs: Initial Vital Signs Temp 98.2 F 12/09/17 11:54 Pulse 78 12/09/17 11:54 Resp 16 12/09/17 11:54 BP 128/88 12/09/17 11:54 Pulse Ox 100 12/09/17 11:54 Vital Signs Reviewed: Yes Eye Exam: Normal Eyes: Positive: Conjunctiva Clear ENT Exam: Normal ENT: Positive: Normal ENT inspection, Hearing grossly normal, Pharynx normal, Nasal congestion, Nasal drainage, TMs normal, Sinus tenderness, Uvula midline. Negative: Tonsillar swelling, Tonsillar exudate, Trismus, Muffled voice, Hoarse voice, Dental tenderness Dental Exam: Normal Neck exam: Normal Neck: Positive: Supple, Nontender, No Lymphadenopathy Respiratory Exam: Normal Respiratory: Positive: Chest non-tender, Lungs clear, Normal breath sounds, No respiratory distress, No accessory muscle use Cardiovascular Exam: Normal Cardiovascular: Positive: RRR, No Murmur, Pulses Normal, Brisk Capillary Refill Musculoskeletal Exam: Normal Musculoskeletal: Positive: Strength Intact, ROM Intact, No Edema Neurological Exam: Normal Neurological: Positive: Alert, Muscle Tone Normal Psychological Exam: Normal Skin Exam: Normal Throat Pain/Nasal Course/Dx - Course Assessment/Plan: Amoxicillin, Flonase, Mucinex D, Tylenol/ibuprofen for pain. Increase fluids rest and follow with PCP - Differential Dx/Diagnosis Provider Diagnoses: Acute rhinosinusitis Discharge - Sign-Out/Discharge Documenting (check all that apply): Discharge - Discharge Plan Condition: Stable Disposition: HOME Prescriptions: Amoxicillin PO (*) [Amoxicillin 875 MG (*)] 875 mg PO BID #20 tab Fluticasone NASAL SPRAY 50MCG* [Flonase NASAL SPRAY 50MCG*] 2 spray BOTH NARES DAILY #1 btl Patient Education Materials: Decongestant/Expectorant (By mouth), Sinusitis (ED ), How to Use Nasal [place] (ED) Referrals: Stalin Lagunas HEEL CUTTER [Primary Care Provider] - If Needed - Billing Disposition and Condition Condition: STABLE Disposition: HOME
== END 2017-12-09 13:33 | disposition home or self-care (01) ==
LOC: UCEAST 11:45
DX: J01.90 Acute sinusitis, unspecified (principal); R53.83 Other fatigue; R50.9 Fever, unspecified; E78.5 Hyperlipidemia, unspecified; Z91.048 Other nonmedicinal substance allergy status; Z87.891 Personal history of nicotine dependence
CPT/HCPCS: 99212; G0463

== ENCOUNTER 2018-03-19 10:11 | Emergency (ER) | payer BC ==
[2018-03-19 11:39] VITALS: BP 122/66
--- NOTE | 2018-03-19 12:10 | UC ---
Skin Complaint HPI - HPI Summary HPI Summary: Pain above right eye brow that radiates in to right scalp, swollen glands near ear, rad pain and a funny sensation prior to the rash breaking out and now has both pain and itching in area--- - History of Current Complaint Chief Complaint: UCRash Time Seen by Provider: 03/19/18 12:08 Stated Complaint: BUMPS ON HEAD AND FACE Hx Obtained From: Patient Hx Last Menstrual Period: na ?: No Onset/Duration: Sudden Onset, Lasting Days - 2-3 Timing: Constant Pain Intensity: 8 Pain Scale Used: 0-10 Numeric Location: Discrete - right forehead and scalp Character: Pain, Raised Aggravating Factor(s): Nothing Alleviating Factor(s): Nothing Associated Signs & Symptoms: Positive: Rash - Allergy/Home Medications Allergies/Adverse Reactions: Allergies Allergy/AdvReac Type Severity Reaction Status Date / Time bandaids Allergy Unknown Itching Uncoded 03/19/18 11:39 Review of Systems Constitutional: Negative Skin: Rash - above right eye brow and in to scalp Eyes: Negative ENT: Negative Respiratory: Negative Cardiovascular: Negative Gastrointestinal: Negative Genitourinary: Negative Motor: Negative Neurovascular: Negative Musculoskeletal: Negative Neurological: Negative Psychological: Negative Is Patient Immunocompromised?: No All Other Systems Reviewed And Are Negative: Yes PMH/Surg Hx/FS Hx/Imm Hx Previously Healthy: No Endocrine History: Dyslipidemia - Surgical History Surgical History: Yes Surgery Procedure, Year, and Place: 1998 HYSTERECTOMY [place];. 2009 RIGHT LITTLE FINGER FRACTURED, ORIF AND REMOVAL OF [facility];. 2018 right eye surgery - Family History Known Family History: Positive: None, Unknown - Social History Occupation: Employed Full-time Lives: With Family Alcohol Use: Occasionally Substance Use Type: None Smoking Status (MU): Former Smoker Length of Time of Smoking/Using Tobacco: 20 years Have You Smoked in the Last Year: No When Did the Patient Quit Smoking/Using Tobacco: 2007 Physical Exam Triage Information Reviewed: Yes Appearance: Well-Appearing, No Pain Distress, Well-Nourished Vital Signs: Initial Vital Signs Temp 97.7 F 03/19/18 11:35 Pulse 76 03/19/18 11:35 Resp 18 03/19/18 11:35 BP 122/66 03/19/18 11:35 Pulse Ox 100 03/19/18 11:35 Vital Signs Reviewed: Yes Eye Exam: Normal Eyes: Positive: Conjunctiva Clear, Other: - perrla, eomi, no dye uptake ENT Exam: Normal ENT: Positive: Normal ENT inspection, Hearing grossly normal, Pharynx normal, TMs normal. Negative: Nasal congestion, Trismus, Muffled voice, Hoarse voice Dental Exam: Normal Neck exam: Normal Neck: Positive: Supple, Nontender Respiratory Exam: Normal Respiratory: Positive: Chest non-tender, No respiratory distress, No accessory muscle use Cardiovascular Exam: Normal Cardiovascular: Positive: RRR, Pulses Normal, Brisk Capillary Refill Musculoskeletal Exam: Normal Musculoskeletal: Positive: Strength Intact, ROM Intact, No Edema Neurological Exam: Normal Neurological: Positive: Alert, Muscle Tone Normal Psychological Exam: Normal Skin Exam: Normal Course/Dx - Course Course Of Treatment: swab to lab for HSV/VZV. Start acyclovir, tylenol- ibuprofen for pain, call eye doctor Tuesday for eye re-check - Diagnoses Provider Diagnoses: Shingles V1 distribution of Trigeminal nerve Discharge - Sign-Out/Discharge Documenting (check all that apply): Patient Departure - Discharge Plan Condition: Stable Disposition: HOME Prescriptions: Acyclovir* [Zovirax 400 MG TAB*] 800 mg PO 5ID 7 Days #70 tab Patient Education Materials: Shingles (ED) Forms: *Work Release Referrals: Stalin Lagunas NP [Primary Care Provider] - Additional Instructions: Give your eye doctor a call on Tuesday to arrange follow up care and re- evaluation of your eye - Billing Disposition and Condition Condition: STABLE Disposition: Home
[2018-03-19] MEDS ORDERED: BSS OPTH.SOL* BTL OPHTHALMIC ONE (12:17)
[2018-03-19] MEDS ORDERED: Fluorescein Sod TOPICAL 0.6* 0.6 MG TEST OPHTHALMIC ONE (12:17)
[2018-03-21 20:18] LABS: HSV 1 PCR Negative (Negative); Varicella Zoster Source SCALP
== END 2018-03-19 12:45 | disposition home or self-care (01) ==
LOC: UCEAST 10:11
DX: B02.22 Postherpetic trigeminal neuralgia (principal); Z87.891 Personal history of nicotine dependence
CPT/HCPCS: 87529; 87798; 99212; A9270-GY; G0463